=== PATIENT | male | born 1965 | race Caucasian/White ===

== ENCOUNTER 2017-12-28 03:01 | Emergency (ER) | END 2017-12-28 05:54 | disposition home or self-care (01) ==

== ENCOUNTER 2018-05-28 22:23 | Emergency (ER) | payer SELFPAY ==
[~2018-05-28] VITALS: Ht 180.3 cm; Wt 86.4 kg
[~2018-05-28 22:23] MED LIST: HYDR20TA PO; LEVO137T3 PO; MESA1.2T2 PO
[2018-05-28 22:29] VITALS: BP 99/72; PULSE 65; RESP 18; Ht 180.3 cm; Wt 86.4 kg
== END 2018-05-28 23:09 | disposition left against medical advice (07) ==
LOC: E/R 22:23
DX: Z53.21 Procedure and treatment not carried out due to patient leaving prior to being seen by health care provider (principal)
CPT/HCPCS: 93005